=== PATIENT | female | born 1990 | race Caucasian/White ===

== ENCOUNTER → 2016-07-27 | Outpatient (CLI) | payer OTHER ==
--- NOTE | 2016-07-28 09:30 | MM ---
Reason for exam: screening (asymptomatic). Baseline mammogram. History: Taking hormonal contraceptives for 4 months. Physical Findings: Nurse did not find any significant physical abnormalities on exam. [facility] Diagnostic Mammo w CAD KHADIJAH Bilateral CC and MLO view(s) were taken. The breast tissue is heterogeneously dense. This may lower the sensitivity of mammography. There is no discrete abnormality. These results were verbally communicated with the patient and result sheet given to the patient on 07/27/16. ASSESSMENT: Negative, BI-RAD 1 RECOMMENDATION: Routine screening mammogram of both breasts at age 40. Manage patient on a clinical basis.
== END | disposition home or self-care (01) ==
LOC: RADMAMWWP 14:16
PROVIDERS: ATTEND Surgery
DX: N64.52 Nipple discharge (principal)

== ENCOUNTER 2016-09-26 12:32 | Day surgery (SDC) | payer OTHER ==
[2016-09-21 10:29] VITALS: BMI 41.1
[~2016-09-26 12:32] MED LIST: DEXAMETHASONE SOD PHOSPHATE 10 MG/ML 1 ML VIAL IV ONE; HYDROmorphone 1 MG/ML 1 ML SYRINGE IVP PRN; LACTATED RINGERS 1,000 ML IV SCH; MIDAZOLAM 2 MG/2 ML VIAL IV PRN; ONDANSETRON 4 MG/2 ML VIAL IVP ONE; ceFAZolin 2 GM in SODIUM CHLORIDE 0.9% 100 ML IVPB ONE
[2016-09-26] MEDS ORDERED: LIDOCAINE 1% 20 ML VIAL (10MG/ML) FOR IV START INTRADERMA ONE (13:36)
[2016-09-26] MEDS ORDERED: HEPARIN SODIUM,PORCINE 5,000 UNIT/ML 1 ML VIAL SQ ONE (13:54)
[2016-09-26] MEDS ORDERED: LIDOCAINE 1% INJ 10MG/ML (20 ML MDV) ONE (14:01)
[2016-09-26] MEDS ORDERED: PROPOFOL 10 MG/ML 20 ML VIAL IV ONE (14:01)
[2016-09-26] MEDS ORDERED: KETAMINE 10 MG/ML 20 ML VIAL ONE (14:01)
[2016-09-26] MEDS ORDERED: MIDAZOLAM 2 MG/2 ML VIAL ONE (14:01)
[2016-09-26] MEDS ORDERED: fentaNYL (PF) 50 MCG/ML 2 ML AMP ONE (14:01)
[2016-09-26] MEDS ORDERED: LIDOCAINE (PF) 10 MG/ML 2 ML VIAL SQ ONE ×2 (14:13→14:16)
--- NOTE | 2016-09-26 14:25 | P.OP ---
Date of Procedure: 09/26/16 Preoperative Diagnosis: Exophytic growth left nipple Postoperative Diagnosis: Same Procedure(s) Performed: Excision of exophytic growth left nipple Implants: Anesthesia: MAC Surgeon: Naty Corrales Estimated Blood Loss (ml): 0 IV fluids (ml): 200 Pathology: other (Exophytic growth left nipple) Condition: stable Disposition: PACU Indications for Procedure: Exophytic growth left nipple Operative Findings: exophytic growth left nipple Description of Procedure: Patient is a 26-year-old white female who presents with an exophytic growth of her left nipple. She wishes this to be excised. She did not wish to have it done in the office. The patient was taken to the operative suite and following sedation the area was prepped in a sterile fashion. One percent lidocaine was used to anesthetize the area of concern. Excision was performed using the electrocautery device. The area of excision was approximately 5 mm in size. No active bleeding was identified. The tissue was left to granulate from the inside. No sutures were applied. This was to prevent closure of the ductal orifices. The patient tolerated the procedure in stable condition. The specimen was sent for pathology.
--- NOTE | 2016-09-26 14:26 | P.DS ---
Providers Attending physician: Naty Corrales Primary care physician: Adarsh Cox Plan - Discharge Summary New Discharge Prescriptions: No Action Albuterol Nebulized [Ventolin Nebulized] 2.5 mg INHALATION RT-Q6H PRN PRN Reason: Shortness Of Breath Albuterol Inhaler [Ventolin Hfa Inhaler] 2 puff INHALATION RT-Q6H PRN PRN Reason: Shortness Of Breath Loratadine [Claritin] 10 mg PO DAILY ALPRAZolam [Xanax] 0.25 mg PO DAILY PRN PRN Reason: Anxiety buPROPion HCL [Wellbutrin SR] 300 mg PO DAILY Ibuprofen [Motrin] 800 mg PO Q6H PRN PRN Reason: Pain Etonogestrel/Ethinyl Estradiol [Nuvaring Vaginal Ring] 1 each VG DIRECTED Discharge Medication List Albuterol Inhaler [Ventolin Hfa Inhaler] 2 puff INHALATION RT-Q6H PRN 06/21/15 [ History] Albuterol Nebulized [Ventolin Nebulized] 2.5 mg INHALATION RT-Q6H PRN 06/21/15 [ History] ALPRAZolam [Xanax] 0.25 mg PO DAILY PRN 09/21/16 [History] Etonogestrel/Ethinyl Estradiol [Nuvaring Vaginal Ring] 1 each VG DIRECTED 09/02 [History] Ibuprofen [Motrin] 800 mg PO Q6H PRN 09/21/16 [History] Loratadine [Claritin] 10 mg PO DAILY 09/21/16 [History] buPROPion HCL [Wellbutrin SR] 300 mg PO DAILY 09/21/16 [History] Follow up Appointment(s)/Referral(s): Naty Corrales MD [STAFF PHYSICIAN] - 1 Week Activity/Diet/Wound Care/Special Instructions: Do not drive today Patient may shower after 48 hours Discharge Disposition: HOME SELF-CARE
[2016-09-26 14:38] VITALS: TEMP 97
[2016-09-26 15:11] VITALS: RESP 18
[2016-09-26 15:28] VITALS: BP 126/74; PULSE 68
== END 2016-09-26 15:35 | disposition home or self-care (01) ==
LOC: OR 12:32
PROVIDERS: ATTEND Surgery
DX: L98.8 Other specified disorders of the skin and subcutaneous tissue (principal); D23.9 Other benign neoplasm of skin, unspecified; L90.5 Scar conditions and fibrosis of skin; J45.909 Unspecified asthma, uncomplicated; K21.9 Gastro-esophageal reflux disease without esophagitis; F41.9 Anxiety disorder, unspecified; F32.9 Major depressive disorder, single episode, unspecified; Z79.3 Long term (current) use of hormonal contraceptives; Z79.1 Long term (current) use of non-steroidal anti-inflammatories (NSAID); Z79.899 Other long term (current) drug therapy; Z88.5 Allergy status to narcotic agent
CPT/HCPCS: 81025; 88305; 11400; J2250; J2001 ×2; J1100; J0690; J2405; J3010; J2704

== ENCOUNTER → 2018-04-25 | Outpatient (CLI) | payer OTHER ==
--- NOTE | 2018-04-25 13:56 | CT ---
EXAMINATION TYPE: CT abdomen pelvis wo con DATE OF EXAM: 04/25/2018 COMPARISON: Prior CT 06/21/2015 HISTORY: Left lower quadrant pain CT DLP: 1192 mGycm Automated exposure control for dose reduction was used. TECHNIQUE: Helical acquisition of images from the lung bases through the pelvis. FINDINGS: Lack of contrast could compromise sensitivity. LUNG BASES: No significant abnormality is appreciated. AORTA: No significant abnormality is appreciataed. LIVER/GB: Liver is unremarkable. Patient is post cholecystectomy. PANCREAS: No significant abnormality is seen. SPLEEN: No significant abnormality is seen. ADRENALS: No significant abnormality is seen. KIDNEYS: No significant abnormality is seen. REPRODUCTIVE ORGANS: 5.3 x 5.6 cm left adnexal mass may represent ovarian cyst has developed in the interval. URINARY BLADDER: No significant abnormality is seen. BOWEL: No significant abnormality is seen. There is a small hiatal hernia. FREE AIR: No Free Air is visible. ASCITES: None visible. PELVIC ADENOPATHY: None visualized. RETROPERITONEAL ADENOPATHY: No Retroperitoneal Adenopathy visible. OSSEOUS STRUCTURES: No significant abnormality is seen. IMPRESSION: PROBABLE LEFT OVARIAN CYST, FOLLOW-UP. NONCONTRAST EXAM.
--- NOTE | 2018-04-25 15:08 | US ---
EXAMINATION TYPE: US pelvis complete transvag DATE OF EXAM: 04/25/2018 COMPARISON: 06/21/2015 CLINICAL HISTORY: R10.32 Left lower quadrant pain. TECHNIQUE: Transvaginal (TV) and Transabdominal (TA) . Transabdominal sonographic images of the pel vis were acquired. Transvaginal sonographic images were medically necessary to better assess the fol lowing anatomy: Date of LMP: 03/18/2018 EXAM MEASUREMENTS: Uterus: 9.2 x 4.4 x 5.1 cm Endometrial Stripe: 0.3 cm Right Ovary: not visualized Left Ovary: 6.3 x 5.0 x 5.9 cm 1. Uterus: Anteverted wnl 2. Endometrium: wnl 3. Right Ovary: Obscured by overlying bowel gas 4. Left Ovary: simple appearing cyst measuring 6.0 x 4.7 x 5.7cm 5. Bilateral Adnexa: wnl 6. Posterior cul-de-sac: wnl IMPRESSION: 1. There is a 6 cm left ovarian cyst which has a simple appearance.
== END | disposition home or self-care (01) ==
LOC: RADUSMAIN 12:08
PROVIDERS: ATTEND Family Medicine
DX: N83.292 Other ovarian cyst, left side (principal); R10.32 Left lower quadrant pain
CPT/HCPCS: 74176; 76830; 76856

== ENCOUNTER 2022-10-30 07:21 | Day surgery (SDC) | payer BC ==
[2022-10-30 07:36] VITALS: RESP 16; TEMP 97
[2022-10-30] MEDS ORDERED: LACTATED RINGERS 1,000 ML IV SCH (07:36)
[2022-10-30] MEDS ORDERED: LIDOCAINE 1% (10MG/ML) FOR IV START INTRADERMA PRN (07:36)
--- NOTE | 2022-10-30 07:44 | P.GSHP ---
History of Present Illness H&P Date: 10/30/22 CHIEF COMPLAINT: GERD HISTORY OF PRESENT ILLNESS: The patient is a 32-year-old female who presents reports gastroesophageal reflux disease. Upper endoscopy was offered for further evaluation and management. PAST MEDICAL HISTORY: Please see list. PAST SURGICAL HISTORY: Please see list. MEDICATIONS: Please see list. ALLERGIES: Please see list. SOCIAL HISTORY: No illicit drug use FAMILY HISTORY: No reports of Crohn disease or ulcerative colitis. REVIEW OF ORGAN SYSTEMS: CONSTITUTIONAL: No reports of fevers or chills. GI: Denies any blood in stools or constipation. PHYSICAL EXAM: VITAL SIGNS: Stable GENERAL: Well-developed and pleasant in no acute distress. HEENT: No scleral icterus. Extraocular movements grossly intact. Moist buccal mucosa. NECK: Supple without lymphadenopathy. CHEST: Unlabored respirations. Equal bilateral excursions. CARDIOVASCULAR: Regular rate and rhythm. Distal 2+ pulses. ABDOMEN: Soft, nondistended. MUSCULOSKELETAL: No clubbing, cyanosis, or edema. ASSESSMENT: 1. Gastroesophageal reflux disease PLAN: 1. Recommend proceeding with an upper endoscopy Past Medical History Past Medical History: Asthma, GERD/Reflux Additional Past Medical History / Comment(s): seasonal allergies History of Any Multi-Drug Resistant Organisms: None Reported Past Surgical History: Cholecystectomy Past Anesthesia/Blood Transfusion Reactions: No Reported Reaction Smoking Status: Never smoker - Past Family History Mother Family Medical History: No Reported History Medications and Allergies Home Medications Medication Instructions Recorded Confirmed Type Albuterol Inhaler [Ventolin Hfa 2 puff INHALATION RT-Q6H PRN 06/21/15 10/23/22 History Inhaler] Albuterol Nebulized [Ventolin 2.5 mg INHALATION RT-Q6H PRN 06/21/15 10/23/22 History Nebulized] Cholecalciferol (Vitamin D3) 125 mcg PO DAILY 09/28/22 10/23/22 History [Vitamin D3 (125 MCG = 5,000 IU)] Cyanocobalamin (Vitamin B-12) 1,000 mcg PO DAILY 09/28/22 10/23/22 History [Vitamin B-12] Omeprazole 20 mg PO DAILY 10/23/22 10/23/22 History norgestimate-ethinyl estradioL 1 each PO DAILY 10/23/22 10/23/22 History [Ortho Tri-Cyclen 28 Tablet] Allergies Allergy/AdvReac Type Severity Reaction Status Date / Time tramadol Allergy Itching Verified 10/30/22 07:43 gabapentin AdvReac Unknown Verified 10/30/22 07:43 Surgical - Exam Vital Signs Temp Pulse Resp BP Pulse Ox 97 F L 94 16 148/83 99 10/30/22 07:35 10/30/22 07:35 10/30/22 07:35 10/30/22 07:35 10/30/22 07:35
[2022-10-30] MEDS ORDERED: PROPOFOL 10 MG/ML 20 ML VIAL IV ONE (08:04)
[2022-10-30] MEDS ORDERED: ALBUTEROL HFA INHALER INHALATION ONE (08:04)
[2022-10-30] MEDS ORDERED: LIDOCAINE 2% INJ 20 MG/ML (2 ML VIAL) ONE (08:04)
--- NOTE | 2022-10-30 08:33 | P.PCN ---
Date of Procedure: 10/30/22 Description of Procedure: PREOPERATIVE DIAGNOSIS: Gastroesophageal reflux disease. Morbid obesity. POSTOPERATIVE DIAGNOSIS: Gastroesophageal reflux disease. Morbid obesity. Gastritis. Diaphragmatic hiatal hernia OPERATION: Esophagogastroduodenoscopy with biopsies along antrum and duodenum SURGEON: Kalyani Abarca MD ANESTHESIA: MAC. INDICATIONS: The patient is a 32-year-old female who presents with reflux disease. Benefits and risks of the procedure were described. Informed consent was obtained. DESCRIPTION: The patient was brought into the endoscopy suite and laid in the left lateral decubitus position. An Olympus gastroscope was passed along the posterior oropharynx down to the distal esophagus where the squamocolumnar junction was encountered at 40 cm from the incisors. The stomach was entered and no bile reflux was found. Additional findings are listed below. Biopsies with cold fo rceps were obtained of the antrum. The first through third portion of the duodenum was examined. Retroflexion of the scope confirmed Hill grade 2 lower esophageal valve. The squamocolumnar junction demonstrated LA grade B erosive esophagitis. The stomach was desufflated. The patient tolerated the procedure well. FINDINGS: Squamocolumnar junction 39 cm from the incisors. Diaphragmatic hiatus at 40 cm. Hiatal hernia, 1 cm, sliding hiatal hernia Hill grade 4 lower esophageal valve. LA grade B erosive esophagitis. Biopsies obtained of the duodenum. Chronic gastritis with biopsies obtained. RECOMMENDATIONS: Upper endoscopy as needed. Plan - Discharge Summary Discharge Rx Participant: No New Discharge Prescriptions: Continue Albuterol Nebulized [Ventolin Nebulized] 2.5 mg INHALATION RT-Q6H PRN PRN Reason: Shortness Of Breath Albuterol Inhaler [Ventolin Hfa Inhaler] 2 puff INHALATION RT-Q6H PRN PRN Reason: Shortness Of Breath Cholecalciferol (Vitamin D3) [Vitamin D3 (125 MCG = 5,000 IU)] 125 mcg PO DAILY Cyanocobalamin (Vitamin B-12) [Vitamin B-12] 1,000 mcg PO DAILY norgestimate-ethinyl estradioL [Ortho Tri-Cyclen 28 Tablet] 1 each PO DAILY Omeprazole 20 mg PO DAILY Discharge Medication List Albuterol Inhaler [Ventolin Hfa Inhaler] 2 puff INHALATION RT-Q6H PRN 06/21/15 [History] Albuterol Nebulized [Ventolin Nebulized] 2.5 mg INHALATION RT-Q6H PRN 06/21/15 [History] Cholecalciferol (Vitamin D3) [Vitamin D3 (125 MCG = 5,000 IU)] 125 mcg PO DAILY 09/28/22 [History] Cyanocobalamin (Vitamin B-12) [Vitamin B-12] 1,000 mcg PO DAILY 09/28/22 [History] Omeprazole 20 mg PO DAILY 10/23/22 [History] norgestimate-ethinyl estradioL [Ortho Tri-Cyclen 28 Tablet] 1 each PO DAILY 10/23/22 [History] Follow [facility]ment[facility]Ref[facility] [place] [facility] Patient Instructions/Handouts: GERD (Gastroesophageal Reflux Disease) (GEN) Discharge Disposition: HOME SELF-CARE
[2022-10-30 08:47] VITALS: BP 116/78; PULSE 83
== END 2022-10-30 09:50 | disposition home or self-care (01) ==
LOC: ORWHC2ENDO 07:21
PROVIDERS: ATTEND Surgery Plastic and Reconstructive Surgery
DX: K29.50 Unspecified chronic gastritis without bleeding (principal); K29.80 Duodenitis without bleeding; K21.00 Gastro-esophageal reflux disease with esophagitis, without bleeding; E66.01 Morbid (severe) obesity due to excess calories; K44.9 Diaphragmatic hernia without obstruction or gangrene; J45.909 Unspecified asthma, uncomplicated; Z90.49 Acquired absence of other specified parts of digestive tract; Z79.51 Long term (current) use of inhaled steroids; Z79.899 Other long term (current) drug therapy; Z68.43 Body mass index [BMI] 50.0-59.9, adult
CPT/HCPCS: 81025; 88305; 43239; J2704; J2001

== ENCOUNTER → 2022-11-15 | Outpatient (CLI) | payer BC ==
[2022-11-15 15:21] VITALS: BP 128/89; PULSE 101; TEMP 98.3; BMI 56.4
--- NOTE | 2022-11-15 16:23 | P.BASOAP ---
Subjective Progress Note Date: 11/15/22 Wants the bypass.recommend the sleeve. All questions answered. EGD revbiewed. Objective - Vital Signs Vital signs: Vital Signs Temp 98.3 F 11/15/22 15:15 Pulse 101 H 11/15/22 15:15 Resp BP 128/89 11/15/22 15:15 Pulse Ox FiO2 Intake & Output 11/14/22 11/15/22 11/15/22 18:59 06:59 18:59 Weight 153.722 kg Assessment/Plan Plan: Date: 11/15/22 Initial Weight: Initial BMI: Current Weight: 153.722 kg Current BMI: 56.4 Type of Surgery: Total Volume in Band: Previous Volume: Volume Removed: Volume Added: Band Size:
== END ==
LOC: BARWHC3 14:21
PROVIDERS: ATTEND Surgery Plastic and Reconstructive Surgery
DX: Z53.9 Procedure and treatment not carried out, unspecified reason (principal)
CPT/HCPCS: 99211

== ENCOUNTER → 2022-11-27 | Outpatient (CLI) | payer BC ==
[2022-11-27 12:14] VITALS: BMI 56.5
== END ==
LOC: BARWHC3 08:50
PROVIDERS: ATTEND Surgery Plastic and Reconstructive Surgery
DX: E66.01 Morbid (severe) obesity due to excess calories (principal); Z68.43 Body mass index [BMI] 50.0-59.9, adult; Z71.3 Dietary counseling and surveillance; Z88.5 Allergy status to narcotic agent; Z88.8 Allergy status to other drugs, medicaments and biological substances
CPT/HCPCS: 97804

== ENCOUNTER → 2023-01-17 | Outpatient (CLI) | payer BC | END | disposition home or self-care (01) | LOC: LABPAT 15:59 | PROVIDERS: ATTEND Surgery Plastic and Reconstructive Surgery | DX: Z53.9 Procedure and treatment not carried out, unspecified reason (principal) ==

== ENCOUNTER → 2023-01-18 | Outpatient (CLI) | payer BC ==
[2023-01-19 02:48] LABS: ALT 24 U/L (8-44); AST 21 U/L (13-35); Albumin 4.3 d/dL (3.8-4.9); Albumin/Globulin Ratio 1.43 Ratio (1.60-3.17); Alkaline Phosphatase 102 U/L (41-126); BUN/Creat Ratio 21.71 Ratio (12.00-20.00); Blood Urea Nitrogen 15.2 mg/dL (9.0-27.0); Carbon Dioxide 19.3 mmol/L (21.6-31.8); Chloride 104 mmol/L (96-109); Glucose 95 mg/dL (70-110); Potassium 4.3 mmol/L (3.5-5.5); Sodium 137 mmol/L (135-145); Total Bilirubin 0.4 mg/dL (0.3-1.2); Total Protein 7.3 d/dL (6.2-8.2)
[2023-01-19 04:40] LABS: Basophils # (A) 0.06 X 10*3/uL (0.00-0.10); Basophils % (A) 0.6 %; Eosinophils # (A) 0.05 X 10*3/uL (0.04-0.35); Eosinophils % (A) 0.5 %; Lymphocytes # (A) 2.24 X 10*3/uL (0.90-5.00); Lymphocytes % (A) 23.6 %; MCH 26.4 pg (27.0-32.0); MCHC 31.1 d/dL (32.0-37.0); MCV 84.9 FL (80.0-97.0); Mean Platelet Volume 10.2 FL (9.5-12.2); Monocytes # (A) 0.46 X 10*3/uL (0.20-1.00); Monocytes % (A) 4.8 %; NRBC Per 100 WBC 0 X 10*3/uL (0.00-0.01); Neutrophils # (A) 6.66 X 10*3/uL (1.80-7.70); Neutrophils % (A) 70.3 %; Platelet Count 354 X 10*3/uL (140-440); RDW 13.9 % (11.5-14.5); WBC 9.49 X 10*3/uL (4.50-10.00)
== END | disposition home or self-care (01) ==
LOC: LABPAT 13:19
PROVIDERS: ATTEND Surgery Plastic and Reconstructive Surgery
DX: Z01.812 Encounter for preprocedural laboratory examination (principal)
CPT/HCPCS: 36415; 80053; 85025; 86850; 86900; 86901

== ENCOUNTER 2023-01-29 11:10 | Inpatient (IN) | payer BC ==
[~2023-01-29 11:10] MED LIST changes: +CHLORHEXIDINE GLUCONATE 15 ML CUP MUCOUS MEM PRN; -DEXAMETHASONE SOD PHOSPHATE 10 MG/ML 1 ML VIAL IV ONE; +DEXAMETHASONE SOD PHOSPHATE 4 MG/ML 1 ML VIAL IV ONE; +ENOXAPARIN 40 MG/0.4 ML SYRINGE SQ PRN; +HYDROmorphone 0.5 MG/0.5 ML SYRINGE IVP PRN; -HYDROmorphone 1 MG/ML 1 ML SYRINGE IVP PRN; -LACTATED RINGERS 1,000 ML IV SCH; +LIDOCAINE 1% (10MG/ML) FOR IV START INTRADERMA PRN; -MIDAZOLAM 2 MG/2 ML VIAL IV PRN; +ONDANSETRON 4 MG/2 ML VIAL IVP PRN; +PANTOPRAZOLE 40 MG/10 ML VIAL IVP PRN; -ceFAZolin 2 GM in SODIUM CHLORIDE 0.9% 100 ML IVPB ONE; +ceFAZolin 3 GM in SODIUM CHLORIDE 0.9% 100 ML IVPB PRN
[2023-01-29] MEDS: LACTATED RINGERS 1,000 ML IV SCH (12:02)
[2023-01-29] MEDS: ALVIMOPAN 12 MG CAPSULE PO PRN ×2 (12:02→12:03)
[2023-01-29] MEDS: ACETAMINOPHEN TAB 500 MG TAB PO PRN ×2 (12:02→12:03)
[2023-01-29] MEDS: MIDAZOLAM 2 MG/2 ML VIAL IVP ONE ×2 (12:14→12:38)
[2023-01-29] MEDS ORDERED: SCOPOLAMINE 1 MG/72 HR PATCH TRANSDERM STA (12:20)
[2023-01-29] MEDS ORDERED: droPERidol 5 MG/2 ML VIAL IVP ONE (12:20)
--- NOTE | 2023-01-29 12:20 | P.GSHP ---
History of Present Illness H&P Date: 01/29/23 CHIEF COMPLAINT: Morbid obesity HISTORY OF PRESENT ILLNESS: Dot Palmer is a 32-year-old female who comes with lifelong morbid obesity. As result of morbid obesity, she has developed hypertensive heart disease, osteoarthritis of the hips and knees. She has completed medical supervised weight loss. She completed medical including cardiac assessment. She has completed psychological risk assessment. All surgical options were reviewed. She elected for sleeve. At height of 5 feet 5 inches, her ideal body weight is 149 pounds. She comes in 330 pounds. Her body mass index is 55.1 She is 181 pounds overweight. PAST MEDICAL HISTORY: 1. Morbid obesity due to excess calories 2. Body mass index of 55.1 3. Osteoarthritis of the knees. 4. Osteoarthritis of the lower back. 5. Hypertensive heart disease 6. Gastroesophageal reflux disease 7. Hyperlipidemia 8. Depressive disorder 9. Generalized anxiety disorder PAST SURGICAL HISTORY: 1. Cholecystectomy 2. Left breast lumpectomy HOME MEDICATIONS: Reviewed ALLERGIES: Reviewed SOCIAL HISTORY: Denies past tobacco use. FAMILY HISTORY: No family history of ulcerative colitis disease or Crohn's disease. Family history of morbid obesity. No lupus in the family. No reports of stomach or esophageal cancer. REVIEW OF ORGAN SYSTEMS: CONSTITUTIONAL: At height of 5 feet 5 inches, her ideal body weight is 149 pounds. She comes in 330 pounds. Her body mass index is 55.1 She is 181 pounds overweight. HEENT: Denies any active troubles with vision or hearing. ENDOCRINE: Denies diabetes. Denies hypothyroidism. CARDIOVASCULAR: Past reports of palpitations RESPIRATORY: Has daytime somnolence. GASTROINTESTINAL: Denies any bright red blood per rectum. Has gastroesophageal reflux disease. MUSCULOSKELETAL: Has lower back pain and joint pain. Has osteoarthritis of the knees. NEURO: No headaches. No seizure disorders. PSYCH: Has depression. No suicidal ideation. RHEUMATOLOGIC: No lupus. No rheumatoid arthritis. HEMATOLOGIC: Denies any abnormal bleeding or bruising. No personal history of DVTs. SKIN: Has rash. No skin cancer. PHYSICAL EXAM: VITAL SIGNS: Height 5 foot 5 inches, weight 304 pounds. BMI 46.4 GENERAL: Well-developed in no acute distress. HEENT: No scleral icterus. Extraocular movements grossly intact. Hears conversational speech. No nasal drainage. NECK: Supple without lymphadenopathy. CHEST: Nonlabored respirations with equal bilateral excursions. CARDIOVASCULAR: Regular rate and regular rhythm. Distal 2+ pulses. ABDOMEN: Obese, soft, nontender, nondistended. MUSCULOSKELETAL: No clubbing, cyanosis. NEURO: No focal or lateralizing signs. Cranial nerves 2 through 12 grossly within normal limits. PSYCH: Appropriate affect. Alert and oriented to person, place and time. SKIN: Good skin turgor. Well perfused. ASSESSMENT: 1. Morbid obesity due to excess calories 2. Body mass index of 55.1 3. Osteoarthritis of the knees. 4. Osteoarthritis of the lower back. 5. Hypertensive heart disease 6. Gastroesophageal reflux disease 7. Hyperlipidemia 8. Depressive disorder 9. Generalized anxiety disorder PLAN: 1. Bariatric options between a sleeve, band and a Dulce Maria-en-Y gastric bypass were reviewed in detail. The patient elected for a gastric sleeve. Robotic assisted approach described. 2. The [place] [facility] Data was also reviewed with benefits and risks as described. 3. An 8 page second-generation bariatric consent form was reviewed in detail including potential of bleeding, infection, leaks, adequate weight loss, nutritional deficiencies which the patient demonstrated understanding of the risks. 4. A 2 week high-protein low caloric 800 kcal diet described to address hepatomegaly. 5. Preoperative labs including complete metabolic panel and CBC with type and screen recommended. 6. DVT prophylaxis per [place] [facility]. 7. Antibiotic prophylaxis. 8. Inpatient hospitalization anticipated for more than 2 nights. 9. All questions and concerns were addressed with the patient. 10. She is at elevated risk for perioperative complications with body mass index over 50. 11. Overall, patient has expressed understanding of bariatric care including postoperative diet and commitment of lifestyle. Patient should benefit from surgical intervention for correction of her morbid obesity. 12. Nonnarcotic pain management reviewed. Past Medical History Past Medical History: Asthma, GERD/Reflux, Skin Disorder Additional Past Medical History / Comment(s): Seasonal allergies. "Blood pressure was high last couple times I saw Dr Abarca, think from anxiety". Herniated discs. Sciatica. Eczema. History of Any Multi-Drug Resistant Organisms: None Reported Past Surgical History: Breast Surgery, Cholecystectomy Additional Past Surgical History / Comment(s): Cyst removed from left breast. Past Anesthesia/Blood Transfusion Reactions: No Reported Reaction Additional Past Anesthesia/Blood Transfusion Reaction / Comment(s): Mom woke up during . Past Psychological History: Anxiety, Depression Additional Psychological History / Comment(s): No current problems with depression. Smoking Status: Never smoker Past Alcohol Use History: Rare Past Drug Use History: None Reported - Past Family History Mother Family Medical History: No Reported History Medications and Allergies Home Medications Medication Instructions Recorded Confirmed Type Albuterol Inhaler [Ventolin Hfa 2 puff INHALATION RT-Q6H PRN 06/21/15 01/29/23 History Inhaler] Albuterol Nebulized [Ventolin 2.5 mg INHALATION RT-Q6H PRN 06/21/15 01/29/23 History Nebulized] Omeprazole 20 mg PO QAM 10/23/22 01/29/23 History norgestimate-ethinyl estradioL 1 each PO QAM 10/23/22 01/29/23 History [Ortho Tri-Cyclen 28 Tablet] Allergies Allergy/AdvReac Type Severity Reaction Status Date / Time tramadol Allergy Itching Verified 01/29/23 11:35 gabapentin AdvReac Unknown Verified 01/29/23 11:35 Surgical - Exam Vital Signs Temp Pulse Resp BP Pulse Ox 97.4 F L 107 H 18 147/80 95 01/29/23 11:36 01/29/23 11:36 01/29/23 11:36 01/29/23 11:36 01/29/23 11:36
[2023-01-29] MEDS ORDERED: fentaNYL (PF) 50 MCG/ML 2 ML AMP ONE (12:52)
[2023-01-29] MEDS ORDERED: NEOSTIGMINE 1 MG/ML 10 ML VIAL ONE (12:52)
[2023-01-29] MEDS ORDERED: SUCCINYLCHOLINE CHLORIDE 200 MG/10 ML VIAL IV ONE (12:52)
[2023-01-29] MEDS ORDERED: HYDROmorphone (PF) 1 MG/ML ONE (12:52)
[2023-01-29] MEDS ORDERED: PROPOFOL 10 MG/ML 20 ML VIAL IV ONE (12:52)
[2023-01-29] MEDS ORDERED: ALBUTEROL INHALER 60 PUFF/8 GM INHALER (MHU) INHALATION ONE (12:52)
[2023-01-29] MEDS ORDERED: MIDAZOLAM 2 MG/2 ML VIAL ONE (12:52)
[2023-01-29] MEDS ORDERED: LIDOCAINE 1% INJ 10MG/ML (20 ML MDV) ONE (12:52)
[2023-01-29] MEDS ORDERED: ROCURONIUM 10 MG/ML (5 ML VIAL) IV ONE (12:52)
[2023-01-29] MEDS ORDERED: GLYCOPYRROLATE 0.2 MG/ML 2 ML VIAL ONE (12:52)
[2023-01-29] MEDS ORDERED: LIDOCAINE 2% INJ 20 MG/ML SQ ONE ×2 (12:54→13:20)
[2023-01-29] MEDS ORDERED: LACTATED RINGERS 1,000 ML IV ONE (14:06)
[2023-01-29] MEDS ORDERED: HYDROmorphone 1 MG/ML 1 ML SYRINGE IVP PRN (15:11)
[2023-01-29] MEDS ORDERED: diphenhydrAMINE 50 MG/ML 1 ML VIAL IVP PRN (15:11)
[2023-01-29] MEDS ORDERED: NALOXONE 0.4 MG/ML 1 ML VIAL IV PRN ×2 (15:11→17:31)
--- NOTE | 2023-01-29 15:14 | P.OP ---
Date of Procedure: 01/29/23 Description of Procedure: SURGEON: ROSALINDA SANTIAGO MD PREOPERATIVE DIAGNOSES: 1. Morbid obesity due to excess calories 2. Body mass index of 55.1 3. Osteoarthritis of the knees. 4. Osteoarthritis of the lower back. 5. Hypertensive heart disease 6. Gastroesophageal reflux disease 7. Hyperlipidemia 8. Depressive disorder 9. Generalized anxiety disorder POSTOPERATIVE DIAGNOSES: 1. Morbid obesity due to excess calories 2. Body mass index of 55.1 3. Osteoarthritis of the knees. 4. Osteoarthritis of the lower back. 5. Hypertensive heart disease 6. Gastroesophageal reflux disease 7. Hyperlipidemia 8. Depressive disorder 9. Generalized anxiety disorder OPERATION: 1. Robotic assisted daVinci Xi laparoscopic sleeve gastrectomy with 40-Greek bougie, multiport. 2. Intraoperative esophagogastroduodenoscopy. ANESTHESIA: Gen. local anesthetic ESTIMATED BLOOD LOSS: 10 mL SPECIMENS REMOVED: Sleeve gastrectomy COMPLICATIONS: None. FINDINGS: 1. Negative intraoperative esophagogastrojejunoscopy leak test. 2. No hepatomegaly and no large hiatus hernia. 3. Total of 6 staplers used including 2 - 60 mm green robot chin and 4 - 60 mm blue robot loads used to create the gastric sleeve. 4. Sleeve gastrectomy, 29 x 6 cm INDICATIONS: Josie Garcias is a 32-year-old female who comes with lifelong morbid obesity. As result of morbid obesity, she has developed hypertensive heart disease, osteoarthritis of the hips and knees. She has completed medical supervised weight loss. She completed medical including cardiac assessment. She has completed psychological risk assessment. All surgical options were reviewed. She elected for sleeve. At height of 5 feet 5 inches, her ideal body weight is 149 pounds. She comes in 330 pounds. Her body mass index is 55.1 She is 181 pounds overweight. All surgical options for morbid obesity had been described using the [place] bariatric surgery collaborative comorbidity resolution including complication risk score. A second-generation bariatric consent form was described in detail including the possibility of protein malnutrition, leaks, gastric stricture, venous thrombosis, gastroesophageal reflux disease, need for further surgery for which she demonstrated understanding. Benefits and risks of the procedure were described at length. Informed consent was obtained. DESCRIPTION: The patient was brought into the operating room theater. Preoperatively she had received Lovenox subcutaneously for DVT prophylaxis. Additionally she had Peridex oral solution as an oral decontaminant. After general induction, the abdomen was prepped and draped in standard sterile fashion. An Ioban draping was placed along the abdomen. A robotic da Rach Xi system was prepped and primed. At 13 cm from the xiphoid, proposed port sites were marked with indelible marker along the anterior axillary line bilaterally, mid axillary line bilaterally with each ports were marked 10 to 15 cm from each other. The robotic stapler port was marked for the right midclavicular line. A 5 mm 0 degrees laparoscopic trocar entry was performed along the left upper quadrant. The abdomen was insufflated to 15 mmHg pressure was tolerated well. Diagnostic laparoscopy demonstrated no injury to bowel, viscera, or mesentery. No evidence of large hiatus hernia was identified. The liver edge was sharp consistent with 2 week low-carb high-protein diet. A 8 mm port was placed along the left upper abdominal wall after exchanging the 5 mm port. A separate 8 mm port was placed along the left lateral abdominal wall. Please note that the ports were placed at least 20 cm away from the target anatomy. Care was taken to check each robotic arms were safely away from collision with the bed or the patient. At the epigastrium, a medium sized Fatimah liver retractor was placed under direct visualization with the Iron Event Sales Manager placed under the right shoulder of the patient. Next, 12-mm robot stapler port was placed along the right upper quadrant. The camera 8-mm port was maintained along the epigastrium. The patient was repositioned in reverse Trendelenburg position at 21-degrees after lowering the bed. The robot was docked along the left side of the patient. Using a grasper for arm 4, a vessel sealer for arm 3, including grasper for arm 1, the robotic system was docked and primed as described. Instruments were interchanged by the assignment desk assistant for stapler loads. The camera was placed at 30- degrees down. I had sat at the console. The pylorus was identified and 6 cm proximally along the greater curvature of the stomach, the short gastrics were mobilized upwards to the angle of His using a vessel sealer. Hemostasis was excellent during this portion of the procedure. Next, the upper pole of the stomach was adherent to the left emmanuel, which was gently dissected free using atraumatic grasper. I went to the head of the bed and placed 40-Greek blunt bougie into the stomach. The bougie was readjusted by the nurse lapidarist. Robotic stapler green load 60 mm 2 followed by blue 60 mm x 4 loads were used to create the sleeve. Initial firing was across the antrum of the stomach towards the angle of His. The staple line was linear without corkscrewing. The space from the angularis incisura of the sleeve was approximately 4 cm. mild bleeding was found at the hiatus without involvement of the spleen. Bleeding was controlled using cautery. I then went to the head of the bed to perform the intraoperative esophagogastroduodenoscopy leak test. The bougie was withdrawn. The upper pole of the stomach was bathed using normal saline solution. The scope was withdrawn with careful inspection along the staple line for which no leaks were found along the entire length. Additionally,the sleeve was completely hemostatic without any encroachment along the angularis incisura. Its topology was a soft "J". No stricture was encountered upon placement of the scope. The GI tract was desufflated. The patient tolerated this portion of the procedure well. The scope was completely withdrawn. The robot was undocked. I then rescrubbed into case, whereby the irrigation fluid was aspirated from the abdominal cavity. Tisseel fibrin sealant was placed along the entire staple length. Once dried the Fatimah liver retractor was removed. Attention was now brought to removal of the specimen. The distal end of the sleeve gastrectomy specimen was brought out through the 12 mm port at the left upper quadrant. The specimen was gently removed en total. No contamination had occurred during this process. All instruments and pneumoperitoneum including irrigation fluid was removed from the abdominal cavity. The 12 mm port site was closed using 0-Vicryl and Cade Adam and irrigated with diluted hydrogen peroxide. The final incisions were closed using subcuticular interrupted suture of 4-0 Monocryl. Exofin was applied to the skin once the skin had been cleansed. OptiFoam dressing was placed along the stomach extraction site. The sleeve specimen was measured and checked also for leaks which none were found. At the end of the procedure, needle, sponge, and instrument count was verified correct by the surgical services tech. The patient was taken to the postanesthesia care unit in stable condition. She had tolerated the procedure well. Intraoperative films and findings were reviewed with the patient's family. Due to high risk of bleeding, heparin for DVT prophylaxis is sought.
[2023-01-29] MEDS: ALBUTEROL NEBULIZED 2.5 MG/3 ML INHALATION SCH ×2 (16:13→20:19)
[2023-01-29] MEDS: ONDANSETRON 4 MG/2 ML VIAL IVP SCH (17:04)
[2023-01-29] MEDS: DEXAMETHASONE SOD PHOSPHATE 4 MG/ML 1 ML VIAL IVP SCH (17:06)
[2023-01-29] MEDS: ACETAMINOPHEN IV (For NPO) 1,000 MG in EMPTY BAG 1 BAG IVPB SCH (17:06)
[2023-01-29] MEDS: HYOSCYAMINE ORAL DROPS 1.875 MG/15 ML BOTTLE PO SCH (17:07)
[2023-01-29] MEDS: SIMETHICONE 40 MG/0.6 ML DROPS 2,000 MG/30 ML BOTTLE PO SCH ×2 (17:07→20:35)
[2023-01-29] MEDS ORDERED: SIMETHICONE 80 MG CHEWABLE PO SCH (18:00)
[2023-01-29] MEDS: 0.9% NACL WITH KCL 20 MEQ/L 1,000 ML IV SCH (18:04)
[2023-01-29] MEDS: fentaNYL PCA 500 MCG/50 ML BAG IV SCH (18:46)
[2023-01-29] MEDS: PANTOPRAZOLE 40 MG/10 ML VIAL IV SCH (20:35)
[2023-01-29] MEDS ORDERED: ceFAZolin 3 GM in SODIUM CHLORIDE 0.9% 100 ML IVPB SCH (21:00)
[2023-01-30] MEDS: 0.9% NACL WITH KCL 20 MEQ/L 1,000 ML IV SCH ×4 (00:57→18:40)
[2023-01-30] MEDS: ACETAMINOPHEN IV (For NPO) 1,000 MG in EMPTY BAG 1 BAG IVPB SCH ×5 (00:57→23:48)
[2023-01-30] MEDS: HYOSCYAMINE ORAL DROPS 1.875 MG/15 ML BOTTLE PO SCH ×4 (00:59→18:30)
[2023-01-30] MEDS: DEXAMETHASONE SOD PHOSPHATE 4 MG/ML 1 ML VIAL IVP SCH ×5 (00:59→23:49)
[2023-01-30] MEDS: ONDANSETRON 4 MG/2 ML VIAL IVP SCH ×5 (00:59→23:49)
[2023-01-30] MEDS ORDERED: METOCLOPRAMIDE 5 MG/ML 2 ML VIAL IVP PRN (03:50)
[2023-01-30] MEDS: fentaNYL PCA 500 MCG/50 ML BAG IV SCH (05:23)
[2023-01-30] MEDS: LACTATED RINGERS 1,000 ML IV SCH (07:45)
[2023-01-30] MEDS: ALBUTEROL NEBULIZED 2.5 MG/3 ML INHALATION SCH ×4 (08:50→20:34)
[2023-01-30 09:37] LABS: Basophils # (A) 0.01 X 10*3/uL (0.00-0.10); Basophils % (A) 0.1 %; Eosinophils # (A) 0 X 10*3/uL (0.04-0.35); Eosinophils % (A) 0 %; HCT 39.5 % (37.2-46.3); HGB 12.6 g/dL (12.0-15.0); Lymphocytes % (A) 7.6 %; MCH 26.5 pg (27.0-32.0); MCHC 31.9 g/dL (32.0-37.0); Mean Platelet Volume 10.6 FL (9.5-12.2); Monocytes # (A) 0.18 X 10*3/uL (0.20-1.00); Monocytes % (A) 2.3 %; NRBC Per 100 WBC 0 X 10*3/uL (0.00-0.01); Neutrophils % (A) 89.6 %; Platelet Count 260 X 10*3/uL (140-440); RBC 4.76 X 10*6/uL (4.10-5.20); RDW 14.1 % (11.5-14.5); WBC 7.92 X 10*3/uL (4.50-10.00)
--- NOTE | 2023-01-30 09:41 | FL ---
EXAMINATION TYPE: FL UGI DATE OF EXAM: 01/30/2023 COMPARISON: CT abdomen and pelvis HISTORY: Postop gastric sleeve TECHNIQUE: A single contrast UGI study is performed with Isovue-370. A total of 7 seconds of fluoro scopic time was utilized during procedure and 152 images obtained. Total dose area product (DAP) in u Gy*m?, mGy*cm? (or similar): 8514.96. FINDINGS: Contrast easily passes through the esophagus into the stomach. Mild tertiary esophageal contractions identified. No evidence for hiatal hernia. Post surgical changes from gastric sleeve without evidence for leak or obstruction. IMPRESSION: Postsurgical changes from gastric sleeve without evidence for leak or obstruction.
[2023-01-30 09:46] LABS: Blood Urea Nitrogen 7.1 mg/dL (9.0-27.0); Carbon Dioxide 17.7 mmol/L (21.6-31.8); Chloride 107 mmol/L (96-109); Phosphorus 2.2 mg/dL (2.4-5.1); Potassium 4.7 mmol/L (3.5-5.5); Sodium 137 mmol/L (135-145)
[2023-01-30] MEDS: SIMETHICONE 40 MG/0.6 ML DROPS 2,000 MG/30 ML BOTTLE PO SCH ×4 (10:36→21:15)
[2023-01-30] MEDS: ENOXAPARIN 40 MG/0.4 ML SYRINGE SQ SCH (10:37)
[2023-01-30 11:02] VITALS: BMI 55.0
--- NOTE | 2023-01-30 12:52 | P.PN ---
Subjective Progress Note Date: 01/30/23 CHIEF COMPLAINT: Morbid obesity HISTORY OF PRESENT ILLNESS: Patient is postop day #1 status post robotic- assisted laparoscopic sleeve gastrectomy. Patient complains of abdominal pain. She has been requiring the SUBSTANCE ABUSE CLINICIAN pump. She has been nauseated. Improved with medications. Denies any flatus. She has urinated. She has been up and ambulating. Denies any vomiting. Upper GI shows no evidence of leak or obstruction. Afebrile. WBC 7.9 to Hgb 12.6 platelets 260 sodium 137 potassium is 4.7 creatinine 0.6 magnesium 2.0 PHYSICAL EXAM: VITAL SIGNS: Reviewed GENERAL: Well-developed in no acute distress. HEENT: No sclera icterus. Extraocular movements grossly intact. Moist buccal mucosa. Head is atraumatic, normocephalic. Hears conversational speech. No nasal drainage. NECK: Supple without lymphadenopathy. CHEST: Non-labored respirations and equal bilateral excursions. CARDIOVASCULAR: Palpable 2+ radial pulses. ABDOMEN: Soft. Nondistended. Nontender. MUSCULOSKELETAL: No clubbing or cyanosis. NEUROLOGIC: No focal or lateralizing signs. Cranial nerves II through XII grossly intact. PSYCH: Appropriate affect. Alert and oriented to person, place and time. SKIN: Well perfused. Good skin turgor. ASSESSMENT: 1. Morbid obesity due to excess calories 2. Body mass index of 55.1 3. Osteoarthritis of the knees. 4. Osteoarthritis of the lower back. 5. Hypertensive heart disease 6. Gastroesophageal reflux disease 7. Hyperlipidemia 8. Depressive disorder 9. Generalized anxiety disorder PLAN: -Continue bariatric clear liquid diet -accucath ordered for IV access. Patient's IV went bad. -Continue IV fluids -Continue pain management -Encourage patient to ambulate -Encourage patient to use incentive spirometer -Anticipate discharge possibly tomorrow -DVT prophylaxis Lovenox Physician Wire Threader note has been reviewed by physician. Signing provider agrees with the documented findings, assessment, and plan of care. Objective - Vital Signs Vital signs: Vital Signs Temp 97.3 F L 01/30/23 07:37 Pulse 71 01/30/23 07:37 Resp 18 01/30/23 07:37 BP 155/94 01/30/23 07:37 Pulse Ox 94 L 01/30/23 07:37 FiO2 Intake & Output 01/29/23 01/30/23 01/30/23 18:59 06:59 18:59 Intake Total 600 Output Total 10 Balance 590 Weight 150.2 kg 150.2 kg Intake: IV 600 Output: Estimated Blood Loss 10 Other: Voiding Method Toilet # Voids 3 - Labs CBC & Chem 7: 01/30/23 05:41 01/30/23 05:41 Labs: Abnormal Lab Results - Last 24 Hours (Table) 01/30/23 01/30/23 Range/Units 05:41 05:41 MCH 26.5 L (27.0-32.0) pg MCHC 31.9 L (32.0-37.0) g/dL Lymphocytes # 0.60 L (0.90-5.00) X 10*3/uL Monocytes # 0.18 L (0.20-1.00) X 10*3/uL Eosinophils # 0 L (0.04-0.35) X 10*3/uL Carbon Dioxide 17.7 L (21.6-31.8) mmol/L Anion Gap 12.30 H (4.00-12.00) mmol/L BUN 7.1 L (9.0-27.0) mg/dL Phosphorus 2.2 L (2.4-5.1) mg/dL
[2023-01-30] MEDS ORDERED: ONDANSETRON ODT 4 MG TAB PO STA (13:25)
[2023-01-30] MEDS: PANTOPRAZOLE 40 MG/10 ML VIAL IV SCH ×2 (14:06→21:15)
[2023-01-31] MEDS: HYOSCYAMINE ORAL DROPS 1.875 MG/15 ML BOTTLE PO SCH ×4 (00:05→18:15)
[2023-01-31] MEDS: 0.9% NACL WITH KCL 20 MEQ/L 1,000 ML IV SCH ×3 (00:06→20:27)
[2023-01-31] MEDS: fentaNYL PCA 500 MCG/50 ML BAG IV SCH ×2 (00:51→13:32)
[2023-01-31] MEDS: ONDANSETRON 4 MG/2 ML VIAL IVP SCH ×3 (05:45→18:13)
[2023-01-31] MEDS: DEXAMETHASONE SOD PHOSPHATE 4 MG/ML 1 ML VIAL IVP SCH ×3 (05:45→18:14)
[2023-01-31] MEDS ORDERED: bisacodyL 5 MG TABLET.DR PO PRN (08:00)
[2023-01-31] MEDS: ENOXAPARIN 40 MG/0.4 ML SYRINGE SQ SCH (08:36)
[2023-01-31] MEDS: SIMETHICONE 40 MG/0.6 ML DROPS 2,000 MG/30 ML BOTTLE PO SCH ×4 (08:37→20:27)
[2023-01-31] MEDS: PANTOPRAZOLE 40 MG/10 ML VIAL IV SCH ×2 (08:46→20:27)
[2023-01-31] MEDS: ALBUTEROL NEBULIZED 2.5 MG/3 ML INHALATION SCH ×4 (08:47→19:35)
[2023-01-31] MEDS: LACTATED RINGERS 1,000 ML IV SCH (08:58)
--- NOTE | 2023-01-31 14:11 | P.PN ---
Subjective Progress Note Date: 01/31/23 CHIEF COMPLAINT: Morbid obesity HISTORY OF PRESENT ILLNESS: Patient is postop day #1 status post Robotic- assisted laparoscopic sleeve gastrectomy. Patient continues complaining of abdominal pain. She is still requiring the DIAL REFINISHER pump. No nausea or vomiting. No flatus. She is tolerating liquids but only taking in small amount. Afebrile. She has ambulated. She is urinating. Patient did require active For IV access yesterday. So patient did go appeared of time without any IV access for pain medication. PHYSICAL EXAM: VITAL SIGNS: Reviewed GENERAL: Well-developed in no acute distress. HEENT: No sclera icterus. Extraocular movements grossly intact. Moist buccal mucosa. Head is atraumatic, normocephalic. Hears conversational speech. No nasal drainage. NECK: Supple without lymphadenopathy. CHEST: Non-labored respirations and equal bilateral excursions. CARDIOVASCULAR: Palpable 2+ radial pulses. ABDOMEN: Soft. Nondistended. Nontender. MUSCULOSKELETAL: No clubbing or cyanosis. NEUROLOGIC: No focal or lateralizing signs. Cranial nerves II through XII grossly intact. PSYCH: Appropriate affect. Alert and oriented to person, place and time. SKIN: Well perfused. Good skin turgor. ASSESSMENT: 1. Morbid obesity due to excess calories 2. Body mass index of 55.1 3. Osteoarthritis of the knees. 4. Osteoarthritis of the lower back. 5. Hypertensive heart disease 6. Gastroesophageal reflux disease 7. Hyperlipidemia 8. Depressive disorder 9. Generalized anxiety disorder PLAN: -Continue bariatric clear liquid diet -Continue pain management. IV Tylenol added -Continue IV fluids -Continue Mylicon gas drops -Encourage patient to ambulate -Encourage patient to use incentive spirometer -DVT prophylaxis Lovenox [facility] note has been reviewed by physician. Signing provider agrees with the documented findings, assessment, and plan of care. Objective - Vital Signs Vital signs: Vital Signs Temp 97.4 F L 01/31/23 13:28 Pulse 63 01/31/23 13:28 Resp 19 01/31/23 13:28 BP 130/78 01/31/23 13:28 Pulse Ox 95 01/31/23 13:28 FiO2 Intake & Output 01/30/23 01/31/23 01/31/23 18:59 06:59 18:59 Weight 150.2 kg Other: Voiding Method Toilet # Voids 1 - Labs CBC & Chem 7: 01/30/23 05:41 01/30/23 05:41
[2023-01-31] MEDS: ACETAMINOPHEN IV (For NPO) 1,000 MG in EMPTY BAG 1 BAG IVPB SCH ×2 (14:24→20:26)
[2023-02-01] MEDS: DEXAMETHASONE SOD PHOSPHATE 4 MG/ML 1 ML VIAL IVP SCH ×2 (00:09→05:29)
[2023-02-01] MEDS: ONDANSETRON 4 MG/2 ML VIAL IVP SCH ×2 (00:09→05:29)
[2023-02-01] MEDS: HYOSCYAMINE ORAL DROPS 1.875 MG/15 ML BOTTLE PO SCH ×2 (00:10→05:30)
[2023-02-01 02:41] VITALS: PULSE 50; RESP 17
[2023-02-01] MEDS: ACETAMINOPHEN IV (For NPO) 1,000 MG in EMPTY BAG 1 BAG IVPB SCH ×2 (03:09→10:06)
[2023-02-01] MEDS: fentaNYL PCA 500 MCG/50 ML BAG IV SCH (03:45)
--- NOTE | 2023-02-01 07:42 | P.PN ---
Progress Note - Text Progress Note Date: 01/31/23 Patient still reports uncontrolled incisional pain. Disposition 24 hours for discharge home.
[2023-02-01] MEDS: ALBUTEROL NEBULIZED 2.5 MG/3 ML INHALATION SCH (08:34)
[2023-02-01 08:44] VITALS: BP 147/91; TEMP 98.1
[2023-02-01] MEDS: ENOXAPARIN 40 MG/0.4 ML SYRINGE SQ SCH (10:02)
[2023-02-01] MEDS: PANTOPRAZOLE 40 MG/10 ML VIAL IV SCH (10:10)
[2023-02-01] MEDS: 0.9% NACL WITH KCL 20 MEQ/L 1,000 ML IV SCH (11:51)
[2023-02-01] MEDS: LACTATED RINGERS 1,000 ML IV SCH (11:52)
[2023-02-01] MEDS: SIMETHICONE 40 MG/0.6 ML DROPS 2,000 MG/30 ML BOTTLE PO SCH (11:52)
--- NOTE | 2023-02-02 14:53 | P.DS ---
Providers Date of admission: 01/29/23 14:41 Expected date of discharge: 02/01/23 Attending physician: Kalyani Abarca Primary care physician: Stated None Hospital Course: POSTOPERATIVE DIAGNOSES: 1. Morbid obesity due to excess calories 2. Body mass index of 55.1 3. Osteoarthritis of the knees. 4. Osteoarthritis of the lower back. 5. Hypertensive heart disease 6. Gastroesophageal reflux disease 7. Hyperlipidemia 8. Depressive disorder 9. Generalized anxiety disorder COURSE: Josie Garcias is a 32-year-old female who comes with lifelong morbid obesity. As result of morbid obesity, she has developed hypertensive heart disease, osteoarthritis of the hips and knees. She elected for sleeve gastrectomy. Postoperatively, patient had poor pain tolerance. Prior to discharge, she was tolerating diet. Esophagram was negative for leak or obstruction.. Discharge instructions were verbalized. Procedures: OPERATION: 1. Robotic assisted daVinci Xi laparoscopic sleeve gastrectomy with 40-Belizean bougie, multiport. 2. Intraoperative esophagogastroduodenoscopy. ANESTHESIA: Gen. local anesthetic ESTIMATED BLOOD LOSS: 10 mL SPECIMENS REMOVED: Sleeve gastrectomy COMPLICATIONS: None. FINDINGS: 1. Negative intraoperative esophagogastrojejunoscopy leak test. 2. No hepatomegaly and no large hiatus hernia. 3. Total of 6 staplers used including 2 - 60 mm green robot chin and 4 - 60 mm blue robot loads used to create the gastric sleeve. 4. Sleeve gastrectomy, 29 x 6 cm Patient Condition at Discharge: Good Plan - Discharge Summary Discharge Rx Participant: Yes New Discharge Prescriptions: New bisacodyL [Dulcolax] 5 mg PO DAILY PRN #10 tab PRN Reason: Constipation Acetaminophen Tab [Tylenol Tab] 1,000 mg PO Q6HR PRN #30 tablet PRN Reason: Pain Ondansetron Odt [Zofran Odt] 4 mg PO Q8HR PRN #9 tab PRN Reason: Nausea Simethicone 40 mg/0.6 ml Drops [Mylicon Drops] 40 mg PO PCHS PRN #30 ml PRN Reason: Gas Omeprazole [PriLOSEC] 40 mg PO DAILY #30 cap Continue Albuterol Nebulized [Ventolin Nebulized] 2.5 mg INHALATION RT-Q6H PRN PRN Reason: Shortness Of Breath Albuterol Inhaler [Ventolin Hfa Inhaler] 2 puff INHALATION RT-Q6H PRN PRN Reason: Shortness Of Breath norgestimate-ethinyl estradioL [Ortho Tri-Cyclen 28 Tablet] 1 each PO QAM Discontinued Omeprazole 20 mg PO QAM Discharge Medication List Albuterol Inhaler [Ventolin Hfa Inhaler] 2 puff INHALATION RT-Q6H PRN 06/21/15 [History] Albuterol Nebulized [Ventolin Nebulized] 2.5 mg INHALATION RT-Q6H PRN 06/21/15 [History] norgestimate-ethinyl estradioL [Ortho Tri-Cyclen 28 Tablet] 1 each PO QAM 10/23/22 [History] Acetaminophen Tab [Tylenol Tab] 1,000 mg PO Q6HR PRN #30 tablet 02/01/23 [Rx] Omeprazole [PriLOSEC] 40 mg PO DAILY #30 cap 02/01/23 [Rx] Ondansetron Odt [Zofran Odt] 4 mg PO Q8HR PRN #9 tab 02/01/23 [Rx] Simethicone 40 mg/0.6 ml Drops [Mylicon Drops] 40 mg PO PCHS PRN #30 ml 02/01/23 [Rx] bisacodyL [Dulcolax] 5 mg PO DAILY PRN #10 tab 02/01/23 [Rx] [place]s[place]07[facility]23 1:00 pm Patient Instructions/Handouts: Nutrition after Bariatric Surgery (GEN), Laparoscopic Sleeve Gastrectomy (GEN) Activity/Diet/Wound Care/Special Instructions: Liquid diet only for 2 weeks until Feb 12 May Shower. No soaking in bath tubs 2 weeks until Feb 12 Continue to use incentive spirometry to prevent pneumonias. Please continue to ambulate at home to prevent blood clots in legs. Please notify your surgeon if you develop nausea and vomiting including new onset of abdominal pain. No lifting over 4 pounds in 4 weeks, Feb 28 Drink 64 oz of fluid daily. Start protein shakes on . Notify bariatric center for temp over 101.0, increased pain, drainage from incisions. No straws or carbonated beverages. Liquid diet only. Sugar content should be less than 6 g to avoid dumping syndrome. Take MOM for constipation. CRUSH, OPEN, OR CUT TABLETS LARGER THAN A SIZE OF A TIC TAC Discharge Disposition: HOME SELF-CARE
== END 2023-02-01 11:09 | disposition home or self-care (01) | DRG 621 ==
LOC: OR 11:10 → 4SSUR 14:39 → OBSVTOIN 14:41 → OR 14:41
PROVIDERS: ADMIT Surgery Plastic and Reconstructive Surgery; ATTEND Surgery Plastic and Reconstructive Surgery
PROC: 0DB64Z3 Excision of Stomach, Percutaneous Endoscopic Approach, Vertical (ICD-10-PCS; principal; 2023-01-29 13:10)
PROC: 8E0W4CZ Robotic Assisted Procedure of Trunk Region, Percutaneous Endoscopic Approach (ICD-10-PCS; principal; 2023-01-29 13:10)
PROC: 0DJ08ZZ Inspection of Upper Intestinal Tract, Via Natural or Artificial Opening Endoscopic (ICD-10-PCS; principal; 2023-01-29 13:10)
PROC: 05HC33Z Insertion of Infusion Device into Left Basilic Vein, Percutaneous Approach (ICD-10-PCS; 2023-01-30 17:30)
DX: E66.01 Morbid (severe) obesity due to excess calories (principal); Z68.43 Body mass index [BMI] 50.0-59.9, adult; E78.5 Hyperlipidemia, unspecified; F32.A Depression, unspecified; F41.1 Generalized anxiety disorder; I11.9 Hypertensive heart disease without heart failure; J45.909 Unspecified asthma, uncomplicated; K21.9 Gastro-esophageal reflux disease without esophagitis; M17.0 Bilateral primary osteoarthritis of knee; M16.0 Bilateral primary osteoarthritis of hip; G89.18 Other acute postprocedural pain
CPT/HCPCS: 36410; 43235; 74240; 76937; 80051; 81025; 82310; 82565; 83735; 84100; 84520; 85025; 88307; 94640; 94760

== ENCOUNTER → 2023-02-07 | Outpatient (CLI) | payer BC ==
[2023-02-07 13:16] VITALS: BP 133/85; PULSE 99; RESP 12; TEMP 97.8; BMI 53.5
--- NOTE | 2023-02-07 14:45 | P.BASOAP ---
Subjective Progress Note Date: 02/07/23 Dressing removed. Binder readjusted. Complaining of left groin pain and incisional pain. No infection. Off for 4 weeks. Binder. Get 80 grams of protein. Holiday foods reviewed with type of foods described. Massage ball and binder. Objective - Vital Signs Vital signs: Vital Signs Temp 97.8 F 02/07/23 12:50 Pulse 99 02/07/23 12:50 Resp 12 02/07/23 12:50 BP 133/85 02/07/23 12:50 Pulse Ox FiO2 Intake & Output 02/06/23 02/07/23 02/07/23 18:59 06:59 18:59 Weight 146.011 kg Assessment/Plan Plan: Date: 02/07/23 Initial Weight: 150.593 kg Initial BMI: 55.2 Current Weight: 146.011 kg Current BMI: 53.5 Type of Surgery: Total Volume in Band: Previous Volume: Volume Removed: Volume Added: Band Size:
== END ==
LOC: BARWHC3 12:27
PROVIDERS: ATTEND Surgery Plastic and Reconstructive Surgery
DX: E66.01 Morbid (severe) obesity due to excess calories (principal); Z88.8 Allergy status to other drugs, medicaments and biological substances; Z71.3 Dietary counseling and surveillance; Z88.5 Allergy status to narcotic agent; Z68.43 Body mass index [BMI] 50.0-59.9, adult
CPT/HCPCS: 97802; 99211

== ENCOUNTER → 2023-02-28 | Outpatient (CLI) | payer BC ==
[2023-02-28 14:08] VITALS: BP 127/82; PULSE 106; TEMP 97.7; BMI 52.4
--- NOTE | 2023-02-28 14:48 | P.BASOAP ---
Subjective Progress Note Date: 02/28/23 SHe complains of pain. Flexeril is sent. She requires more time. Return to work Mar 26 Objective - Vital Signs Vital signs: Vital Signs Temp 97.7 F 02/28/23 13:52 Pulse 106 H 02/28/23 13:52 Resp BP 127/82 02/28/23 13:52 Pulse Ox FiO2 Intake & Output 02/27/23 02/28/23 02/28/23 18:59 06:59 18:59 Weight 142.882 kg Assessment/Plan Plan: Date: 02/28/23 Initial Weight: 150.593 kg Initial BMI: 55.2 Current Weight: 142.882 kg Current BMI: 52.4 Type of Surgery: Total Volume in Band: Previous Volume: Volume Removed: Volume Added: Band Size:
--- NOTE | 2023-02-28 14:49 | P.PN ---
Progress Note - Text Progress Note Date: 02/28/23 To whom it may concern: Josie Garcias is under my surgical care. She needs more time to recover. Return to work anticipated for March 26, 2023. Regards, Kalyani Abarca MD FACS
== END ==
LOC: BARWHC3 13:20
PROVIDERS: ATTEND Surgery Plastic and Reconstructive Surgery
DX: E66.01 Morbid (severe) obesity due to excess calories (principal); Z71.3 Dietary counseling and surveillance; Z88.1 Allergy status to other antibiotic agents; Z88.5 Allergy status to narcotic agent
CPT/HCPCS: 97803; 99211